=== PATIENT | male | born 1995 | race Caucasian/White ===

== ENCOUNTER 2022-01-15 22:14 | Inpatient (IN) | payer OTHER ==
[~2022-01-15] VITALS: Ht 170.2 cm; Wt 61.2 kg
[~2022-01-15 22:14] MED LIST: IBUPROFEN800 MG PO
[2022-01-15 23:40] LABS: RED BLOOD COUNT 4.86 M/UL (4.20-5.50); WHITE BLOOD COUNT 9.2 K/UL (4.5-11.0)
[2022-01-16 00:12] LABS: BUN/CREATININE RATIO 10 (0-10)
[2022-01-17 04:15] LABS: BUN/CREATININE RATIO 14 (0-10)
[2022-01-17 13:09] LABS: HBSAG SCREEN Negative (Negative); HEP B CORE AB, TOT Negative (Negative); HEPATITIS B SURF AB QUANT <3.1 mIU/mL (Immunity>9.9)
[2022-01-18 03:17] LABS: HEMOGLOBIN 14.1 gm/dl (14.0-17.5); RED BLOOD COUNT 4.63 M/UL (4.20-5.50); WHITE BLOOD COUNT 10.1 K/UL (4.5-11.0)
[2022-01-18 04:09] LABS: BUN/CREATININE RATIO 9 (0-10)
[2022-01-19 07:10] LABS: HEMOGLOBIN 13.3 gm/dl (14.0-17.5); RED BLOOD COUNT 4.31 M/UL (4.20-5.50); WHITE BLOOD COUNT 10.7 K/UL (4.5-11.0)
[2022-01-19 07:39] LABS: BUN/CREATININE RATIO 7 (0-10); GAMMA GLUTAMYL TRANSPEPTIDASE 203 U/L (7-64)
[2022-01-19 10:09] LABS: HIV AB/P24 AG SCREEN Non Reactive (Non Reactive)
[2022-01-20 06:36] LABS: HEMOGLOBIN 13.5 gm/dl (14.0-17.5); RED BLOOD COUNT 4.38 M/UL (4.20-5.50); WHITE BLOOD COUNT 11.2 K/UL (4.5-11.0)
[2022-01-20 07:49] LABS: BUN/CREATININE RATIO 11 (0-10); GAMMA GLUTAMYL TRANSPEPTIDASE 202 U/L (7-64)
--- NOTE | 2022-01-20 15:23 | NUR ---
DR. KAPADIA NOTIFIED ABOUT RESULTS OF HIDA SCAN. PT CAME BACK TO ROOM AND EATING. DR. KAPADIA STATES IT IS OK TO PUT IN DIET FOR THIS PT. AND SHE WILL CONSULT WITH SURGERY
[2022-01-20] MEDS ORDERED: PROTONIX 40 MG40 M1 PO (18:41)
[2022-01-20] MEDS ORDERED: N-ACETYL-L-CYS600 MG PO (18:41)
[2022-01-20] MEDS ORDERED: FAMOTIDINE20 MG PO (18:41)
[2022-01-20] MEDS ORDERED: NICOTINE PATCH1 EAC2 TOP (18:41)
[2022-01-24 16:11] LABS: HBSAG SCREEN Negative (Negative); HCV AB >11.0 (0.0-0.9); HEP A AB, IGM Negative (Negative); HEP B CORE AB, IGM Negative (Negative)
== END 2022-01-20 19:45 | disposition home or self-care (01) | DRG 443 ==
LOC: ER1 22:14 → M/S 01-16 06:14 → CDU 01-16 06:14 → M/S 01-16 08:26
PROVIDERS: Internal Medicine; Physician Assistant; Student in an Organized Health Care Education/Training Program; ADMIT Internal Medicine
DX: B17.10 Acute hepatitis C without hepatic coma (principal); F15.129 Other stimulant abuse with intoxication, unspecified; B15.9 Hepatitis A without hepatic coma; F17.200 Nicotine dependence, unspecified, uncomplicated; E80.6 Other disorders of bilirubin metabolism; K76.0 Fatty (change of) liver, not elsewhere classified; E86.0 Dehydration; Z71.6 Tobacco abuse counseling; Z79.899 Other long term (current) drug therapy
CPT/HCPCS: 36415; 76705; 78226; 80053; 80074; 80307; 81001; 82140; 82248; 82550; 82553; 82977; 83605; 83690; 83735; 84100; 84311; 84439; 84443; 84484; 85025; 85610; 86140; 86317; 86704; 87340; 87389; 96372; 99285; A9537; G0378; J1650; Q9967; U0002

== ENCOUNTER → 2022-01-24 | Outpatient (CLI) | payer OTHER ==
[~2022-01-24] MED LIST changes: +FAMOTIDINE20 MG PO; +N-ACETYL-L-CYS600 MG PO; +NICOTINE PATCH1 EAC2 TOP; +PROTONIX 40 MG40 M1 PO
[2022-01-24 13:54] LABS: HEMOGLOBIN 13.9 gm/dl (14.0-17.5); RED BLOOD COUNT 4.53 M/UL (4.20-5.50); WHITE BLOOD COUNT 10.4 K/UL (4.5-11.0)
[2022-01-24 14:31] LABS: BUN/CREATININE RATIO 12 (0-10); GAMMA GLUTAMYL TRANSPEPTIDASE 172 U/L (7-64)
== END ==
LOC: LAB 13:36
PROVIDERS: Internal Medicine
DX: B17.9 Acute viral hepatitis, unspecified (principal)
CPT/HCPCS: 36415; 80053; 82248; 82977; 85025